=== PATIENT | male | born 1960 | race Caucasian/White ===

== ENCOUNTER → 2020-06-15 11:06 | Outpatient (CLI) | payer MEDICARE, SELFPAY ==
--- NOTE | ~2020-06-15 | XR_ITS ---
EXAMINATION: XR knee LT min 4V DATE: 06/15/2020 12:02 INDICATION: Left knee pain. TECHNIQUE: 4 views of left knee were obtained. COMPARISON: Left knee radiographs 08/05/2018 FINDINGS: There is varus angulation at the knee. There is advanced osteoarthritis of medial compartme nt with bone volume loss of femoral condyle and tibial condyle. There is severe osteoarthritis of lat eral and patellofemoral compartments. There is a staple in lateral tibial condyle. There is a moderat e-sized knee joint effusion with loose bodies. IMPRESSION: 1. Advanced left knee osteoarthritis. 2. Moderate-sized left knee joint effusion with loose bodies. Reviewed, dictated and finalized at location A. [employer]
--- NOTE | ~2020-06-15 | XR_ITS ---
EXAMINATION: XR knee RT min 4V DATE: 06/15/2020 12:02 INDICATION: Right knee pain. TECHNIQUE: 4 views of right knee were obtained. COMPARISON: Right knee radiographs 08/05/18 FINDINGS: There is varus angulation at the knee. No fracture. There is severe osteoarthritis of media l compartment with an osteochondral lesion of medial femoral condyle. There is mild osteoarthritis of lateral and patellofemoral compartments. No knee joint effusion. IMPRESSION: 1. Severe right knee osteoarthritis. Reviewed, dictated and finalized at location A. [employer]
== END ==
PROVIDERS: PCP Family Medicine; Visit Provider Family Medicine
DX: M17.0 Bilateral primary osteoarthritis of knee (principal); M25.462 Effusion, left knee; M23.42 Loose body in knee, left knee
CPT/HCPCS: 73564